=== PATIENT | female | born 1945 | race Caucasian/White ===

== ENCOUNTER 2017-11-20 19:14 | Emergency (ER) | payer MEDICARE, BC ==
[2017-11-20 19:41] VITALS: BP 117/65
--- NOTE | 2017-11-20 20:26 | UC ---
UC General HPI - HPI Summary HPI Summary: 72 yo WF c/o persistent diarrhea x 1.5 weeks during and after trip from [place], but in the last 3 days associated with chills, joint pains and body aches. had similar sx and took 3 days of cipro - History of Current Complaint Chief Complaint: UCGI Stated Complaint: DIAHERRA Time Seen by Provider: 11/20/17 19:49 Hx Obtained From: Patient Hx Last Menstrual Period: post elvia Onset/Duration: Gradual Onset, Lasting Weeks, Still Present Onset Severity: Moderate Current Severity: Moderate Pain Intensity: 0 Associated Signs & Symptoms: Positive: Abdominal Pain, Diarrhea Related Hx: Recent Illness - recent travel to [place] - Allergy/Home Medications Allergies/Adverse Reactions: Allergies Allergy/AdvReac Type Severity Reaction Status Date / Time No Known Allergies Allergy Verified 11/20/17 19:43 PMH/Surg Hx/FS Hx/Imm Hx - Additional Past Medical History Additional PMH: none Previously Healthy: Yes - Surgical History Surgical History: None Surgery Procedure, Year, and Place: hysterectomy. bunion. cataracts - Family History Known Family History: Positive: Hypertension - Social History Alcohol Use: Occasionally Substance Use Type: None Smoking Status (MU): Never Smoked Tobacco Have You Smoked in the Last Year: No When Did the Patient Quit Smoking/Using Tobacco: over 50 yrs ago - Immunization History Most Recent Influenza Vaccination: Fall 2014 Most Recent Tetanus Shot: THINKS 2009 OR 2010 Most Recent Pneumonia Vaccination: 2014 Review of Systems Constitutional: Chills Skin: Negative Eyes: Negative ENT: Negative Respiratory: Negative Cardiovascular: Negative Gastrointestinal: Abdominal Pain - crampy, Diarrhea - watery and "mucousy" Genitourinary: Negative Motor: Negative Neurovascular: Negative Musculoskeletal: Negative Neurological: Negative Psychological: Negative All Other Systems Reviewed And Are Negative: Yes Physical Exam Triage Information Reviewed: Yes Vital Signs: Initial Vital Signs Temp 37.1 C 11/20/17 19:33 Pulse 74 11/20/17 19:33 Resp 16 11/20/17 19:33 BP 117/65 11/20/17 19:33 Pulse Ox 96 11/20/17 19:33 Eye Exam: Normal ENT Exam: Normal Dental Exam: Normal Neck exam: Normal Neck: Positive: 1 Respiratory Exam: Normal Cardiovascular Exam: Normal Abdominal Exam: Normal Abdomen Description: Positive: Soft, Other: - hyperactive BS Musculoskeletal Exam: Normal Neurological Exam: Normal Psychological Exam: Normal Skin Exam: Normal Course/Dx - Course Course Of Treatment: pt still has watery diarrhea with mucous, while traveling in [place] and after coming back and feels worse- will tx with cipro 500mg BID x3 days - Differential Dx - Multi-Symptom Provider Diagnoses: Traveler's diarrhea. Barotitis media Discharge - Sign-Out/Discharge Documenting (check all that apply): Discharge/Admit/Transfer - Discharge Plan Condition: Stable Disposition: HOME Prescriptions: Ciprofloxacin TAB* [Cipro 500 MG TAB*] 500 mg PO BID 3 Days #6 tab Patient Education Materials: Traveler's Diarrhea (ED), Barotitis Media (ED), Barotrauma (ED) Referrals: Yina Montelongo MD [Primary Care Provider] - Additional Instructions: Follow up with ENT if ear pain persists or worsens - Billing Disposition and Condition Condition: STABLE Disposition: HOME
== END 2017-11-20 20:18 | disposition home or self-care (01) ==
LOC: UCEAST 19:14
DX: A09 Infectious gastroenteritis and colitis, unspecified (principal); T70.0XXA Otitic barotrauma, initial encounter; X58.XXXA Exposure to other specified factors, initial encounter; Z87.891 Personal history of nicotine dependence
CPT/HCPCS: 99212; G0463

== ENCOUNTER 2018-07-31 17:17 | Emergency (ER) | payer BC, MEDICARE, OTHER ==
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
[2018-07-31 19:56] VITALS: BP 141/74
== END 2018-07-31 19:50 | disposition home or self-care (01) ==
LOC: ED 17:17
DX: R07.89 Other chest pain (principal); V89.0XXA Person injured in unspecified motor-vehicle accident, nontraffic, initial encounter; Y92.9 Unspecified place or not applicable
CPT/HCPCS: 99283

== ENCOUNTER 2019-07-25 10:20 | Emergency (ER) | payer MEDICARE ==
--- NOTE | 2019-07-25 11:11 | ED ---
Lower Extremity - HPI Summary HPI Summary: Pt is a 74 y/o F presenting to the ED with a chief complaint of L calf pain. She states on 07/23/2019 she noticed a cramp in her L calf that has not gone away , so she thought she would get it checked. It does not hurt unless she pushes on it, and she denies shortness of breath and chest pain. She notes recent flights to and from [place] on 07/03/19 and 07/09/[address] to [place]. She denies hx of blood clots, and is not on any daily medications. FHx includes diabetes. - History of Current Complaint Chief Complaint: EDExtremityLower Stated Complaint: LEFT CALF PAIN Time Seen by Provider: 07/25/19 10:50 Hx Obtained From: Patient Hx Last Menstrual Period: post elvia Mechanism Of Injury: Unknown Onset of Pain: Days Onset/Duration: Days Severity Initially: Mild Severity Currently: Mild Pain Intensity: 3 Pain Scale Used: 0-10 Numeric Timing: Constant, Lasting Days Location: Is Discrete @ - L upper calf Character Of Pain: Aching - cramping Associated Signs And Symptoms: Positive: Negative Aggravating Factor(s): Other - pushing on the area of pain Alleviating Factor(s): Nothing Able to Bear Weight: Yes - Allergies/Home Medications Allergies/Adverse Reactions: Allergies Allergy/AdvReac Type Severity Reaction Status Date / Time No Known Allergies Allergy Verified 09/07/18 10:25 Home Medications: Home Medications Boswellia David Extract 1 gm PO DAILY 07/25/19 [History Confirmed 07/25/19] Calcium Carb/Mag Ox/Zinc Sulf [Mtbomtt-Ctprmfgaf-Vdjk Tablet] 1 each PO DAILY [History Confirmed 07/25/19] Magnesium Oxide TAB* [MagOx 400 TAB*] 400 mg PO DAILY 07/25/19 [History Confirmed 07/25/19] Melatonin (NF) 1 tab PO BEDTIME PRN 07/25/19 [History Confirmed 07/25/19] Multivitamins/Minerals TAB* [Theragran/minerals TAB*] 1 tab PO DAILY 07/25/19 [ History Confirmed 07/25/19] Valerian Root Extract [Valerian] 150 mg PO DAILY 07/25/19 [History Confirmed ] Zyflamend 1 tab PO DAILY 07/25/19 [History Confirmed 07/25/19] PMH/Surg Hx/FS Hx/Imm Hx Previously Healthy: Yes Endocrine/Hematology History: Denies: Hx Diabetes, Hx Thyroid Disease Cardiovascular History: Reports: Other Cardiovascular Problems/Disorders - mitral/tricuspid regurgitation Denies: Hx Congestive Heart Failure, Hx Hypertension, Hx Pacemaker/ICD Respiratory History: Denies: Hx Asthma, Hx Chronic Obstructive Pulmonary Disease (COPD) GI History: Reports: Other GI Disorders - recent abd discomfort Denies: Hx Ulcer Musculoskeletal History: Reports: Hx Arthritis - knees, hips, Other Musculoskeletal History - arthritis ext remities Denies: Hx Osteoporosis Sensory History: Reports: Hx Hearing Aid - DON'T WEAR THEM Neurological History: Reports: Hx Migraine Psychiatric History: Denies: Hx Panic Disorder - Cancer History Hx Chemotherapy: No Hx Radiation Therapy: No - Surgical History Surgery Procedure, Year, and Place: hysterectomy. Rt FOOT - bunion - W/PINS. cataracts. TONSILECTOMY Infectious Disease History: No Infectious Disease History: Denies: Hx Clostridium Difficile, Hx Hepatitis, Hx Human Immunodeficiency Virus (HIV), Hx of Known/Suspected MRSA, Hx Shingles, Hx Tuberculosis, Hx Known/ Suspected VRE, Hx Known/Suspected VRSA, History Other Infectious Disease, Traveled Outside the [place] in Last 30 Days - Family History Known Family History: Positive: Hypertension, Diabetes - Social History Alcohol Use: Occasionally Hx Substance Use: No Substance Use Type: Reports: None Hx Tobacco Use: No Smoking Status (MU): Never Smoked Tobacco Have You Smoked in the Last Year: No Review of Systems Negative: Chest Pain Negative: Shortness Of Breath Positive: Myalgia All Other Systems Reviewed And Are Negative: Yes Physical Exam - Summary Physical Exam Summary: VITAL SIGNS: Reviewed. GENERAL: Patient is a well-developed and nourished female who is lying comfortable in the stretcher. Patient is not in any acute respiratory distress. HEAD AND FACE: No signs of trauma. No ecchymosis, hematomas or skull depressions. No sinus tenderness.. EYES: PERRLA, EOMI x 2, No injected conjunctiva, no nystagmus. EARS: Hearing grossly intact. Ear canals and tympanic membranes are within normal limits. MOUTH: Oropharynx within normal limits. NECK: Supple, trachea is midline, no adenopathy, no JVD, no carotid bruit, no c- spine tenderness, neck with full ROM. CHEST: Symmetric, no tenderness at palpation. LUNGS: Clear to auscultation bilaterally. No wheezing or crackles. CVS: Regular rate and rhythm, S1 and S2 present, no murmurs or gallops appreciated. ABDOMEN: Soft, non-tender. No signs of distention. No rebound, no guarding, and no masses palpated. Bowel sounds are normal. EXTREMITIES: FROM in all major joints, no edema, no cyanosis or clubbing. Mild L calf tenderness. Negative Homans sign. NEURO: Alert and oriented x 3. No acute neurological deficits. Speech is normal and follows commands. SKIN: Dry and warm. Triage Information Reviewed: Yes Vital Signs On Initial Exam: Initial Vitals Temp Pulse Resp BP Pulse Ox 98.6 F 72 16 147/72 98 07/25/19 10:21 07/25/19 10:21 07/25/19 10:21 07/25/19 10:21 07/25/19 10:21 Vital Signs Reviewed: Yes Procedures - Sedation Patient Received Moderate/Deep Sedation with Procedure: No Diagnostics - Vital Signs Vital Signs Temp Pulse Resp BP Pulse Ox 07/25/19 10:21 98.6 F 72 16 147/72 98 - Laboratory Lab Statement: Any lab studies that have been ordered have been reviewed, and results considered in the medical decision making process. - Ultrasound DVT US Ultrasound Interpretation Completed By: Radiologist Summary of Ultrasound Findings: No evidence of deep vein thrombosis is identified. ED physician has reviewed this report. Lower Extremity Course/Dx - Course Assessment/Plan: Pt is a 74 y/o F presenting to the ED with a chief complaint of L calf pain. She states on 07/23/2019 she noticed a cramp in her L calf that has not gone away, so she thought she would get it checked. It does not hurt unless she pushes on it, and she denies shortness of breath and chest pain. She notes recent flights to and from [place] on 07/03/19 and 07/09/[address] to [place]. She denies hx of blood clots, and is not on any daily medications. FHx includes diabetes. LE US impression: no evidence of deep venous thrombosis. I discussed all the findings and test results with the patient. Patient was instructed to return to the emergency room immediately if any of the symptoms return worsens. Plan of care was discussed with the patient and understands and agrees. All questions were answered at patient satisfaction. There were no further complaints or concerns. Lung exam before discharge: CTA B/L. Good air exchange. No wheezing or crackles heard. CVS: S1 and S2 present. No murmurs appreciated. Patient is alert and oriented x 3. Patient is hemodynamically stable. Patient will be discharged home with follow up PCP in the next 2-3 days - Diagnoses Differential Diagnosis/HQI/PQRI: Positive: Cellulitis, Contusion, DVT, Sprain, Strain Provider Diagnoses: Calf pain Discharge ED - Sign-Out/Discharge Documenting (check all that apply): Patient Departure - Discharge Plan Condition: Stable Disposition: HOME Patient Education Materials: Musculoskeletal Pain (ED) Referrals: Yina Montelongo MD [Primary Care Provider] - Additional Instructions: Please follow up with your primary care provider within the next 1-3 days. Return to the emergency department with any new or worsening symptoms. - Billing Disposition and Condition Condition: STABLE Disposition: Home - Attestation Statements Document Initiated by Scribe: Yes Documenting Scribe: Dayna Rosales Provider For Whom Dani is Documenting (Include Credential): Luis Marion MD. Scribe Attestation: Dayna William scribed for Luis Marion MD. on 07/25/19 at 2035. Scribe Documentation Reviewed: Yes Provider Attestation: The documentation as recorded by the Dayna haro accurately reflects the service I personally performed and the decisions made by , Luis Marion MD. Status of Scribe Document: Viewed
[2019-07-25 16:58] VITALS: BP 119/69
== END 2019-07-25 13:09 | disposition home or self-care (01) ==
LOC: ED 10:20
DX: M79.662 Pain in left lower leg (principal); Z79.899 Other long term (current) drug therapy
CPT/HCPCS: 99282